=== PATIENT | female | born 1960 | race Caucasian/White ===

== ENCOUNTER 2016-07-13 20:03 | Emergency (ER) | payer OTHER ==
[~2016-07-13 20:03] MED LIST: ASPIR 8181 MG PO; METOPROLOL TAR100 MG PO; SPIRONOLACTONE25 MG PO
[2016-07-13 20:08] VITALS: BP 145/87
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
== END 2016-07-13 20:50 ==
LOC: ERH 20:03
DX: S09.90XA Unspecified injury of head, initial encounter (principal); Y04.8XXA Assault by other bodily force, initial encounter

== ENCOUNTER 2016-12-18 23:32 | Emergency (ER) | payer OTHER ==
[~2016-12-18] VITALS: Ht 152.4 cm; Wt 68.0 kg
--- NOTE | 2016-12-19 00:11 | ED UPPER/LOWER EXTREMITY COMPL ---
History of Present Illness General Chief Complaint: Lower Extremity Injury Stated Complaint: "PER PT LIFTING PT HURT RT LEG" Source: patient Exam Limitations: no limitations Vital Signs & Intake/Output Vital Signs & Intake/Output Vital Signs Date Time Temp Pulse Resp B/P B/P Pulse O2 O2 Flow FiO2 Mean Ox Delivery Rate 12/19 0204 98.5 95 17 134/70 98 Room Air 12/18 2351 98.5 96 16 140/72 98 Room Air ED Intake and Output 12/19 0000 12/18 1200 Intake Total Output Total Balance Patient 150 lb Weight Allergies Coded Allergies: NO KNOWN ALLERGIES (07/13/16) Reconcile Medications Aspirin (Ecotrin) 81 MG ECT 1 TAB PO DAILY HEART HEALTH (Reported) Ibuprofen 600 MG TABLET 1 TAB PO TID PRN pain with food Metoprolol Tartrate 100 MG TAB 0.5 TAB PO DAILY BP (Reported) Spironolactone 25 MG TAB 1 TAB PO DAILY BP (Reported) Triage Note: 56YO FEMALE TO TRIAGE W/CO R KNEE AND ANKLE PAIN SP 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 Triage Nurses Notes Reviewed? yes Onset: Abrupt Duration: hour(s): Timing: single episode today Severity: mild Pain/Injury Location: Right: Knee, Ankle. Method of Injury: twisted knee and ankle while assisting patient Modifying Factors: Improves With: rest. Worsens With: movement. Associated Symptoms: swelling HPI: 56-year-old woman in prior good health presents after an accident. She states that she was assisting a patient to the commode. The patient began to fall. She supportive the patient but in doing so twisted her right ankle and right knee. He notes pain and swelling and difficulty walking. She did not directly banged her ankle or knee. She just notes continued pain for the past hour or so. She is otherwise well, has no deformity, and has no other injuries. Past History Travel History Traveled to [place] past 21 day No Medical History Any Pertinent Medical History? 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 No Sexual History Past Sexual History Unobtainable at this time Review of Systems Review of Systems Constitutional: Reports: no symptoms. EENTM: Reports: no symptoms. Respiratory: Reports: no symptoms. Cardiovascular: Reports: no symptoms. Gastrointestinal/Abdominal: Reports: no symptoms. Genitourinary: Reports: no symptoms. Musculoskeletal: Reports: no symptoms. Skin: Reports: no symptoms. Neurological/Psychological: Reports: no symptoms. Hematologic/Endocrine: Reports: no symptoms. Immunological: Reports: no symptoms. All Other Systems: Reviewed and Negative Physical Exam Physical Exam General Appearance: well developed/nourished, mild distress Head: atraumatic Eyes: Bilateral: normal appearance. Ears, Nose, Throat: normal pharynx, normal ENT inspection, hearing grossly normal Neck: normal inspection, supple Cardiovascular/Respiratory: regular rate/rhythm Gastrointestinal: hernia, guarding Back: normal inspection Shoulder Left: normal range of motion, normal inspection Shoulder Right: normal range of motion, normal inspection Knee Right: diffuse tenderness in the proximal tibia. Minimal effusion. Range of motion is normal. No focal bony tenderness. No sign of infection. Foot Right: mild swelling on the right lateral malleolus. Range of motion is normal. There is no deformity. Light touch and deep tendon reflexes are symmetric and intact. Skin: intact, normal color, warm/dry Lymphatic: no anterior cervical manjeet Progress Differential Diagnosis: contusion, fracture, sprain Plan of Care: Orders Procedure Date/time Status XRY-KNEE, RIGHT 12/19 2355 Active XRY-TWO VIEW RIGHT ANKLE 12/19 2355 Active Diagnostic Imaging: Viewed by Me: Radiology Read. Discussed w/RAD: Radiology Read. Radiology Impression: right knee... no fx. , right ankle... no fx. Comments: PATIENT: MARY VALDEZ PRESENT AGE: 56 PATIENT ACCOUNT NO: [id number] : 60 LOCATION: [facility] ORDERING PHYSICIAN: MIRIAM GUZMAN MD SERVICE DATE: 12/18/16 EXAM TYPE: RAD - XRY-TWO VIEW RIGHT ANKLE EXAMINATION: XR ANKLE, RIGHT CLINICAL INFORMATION: Pain, rule out fracture COMPARISON: 08/01/2013 TECHNIQUE: 2 views of the right ankle. FINDINGS: Screws are seen traversing the talocalcaneal articulation. Articular alignment is anatomic. No acute fracture is seen. Mild soft tissue swelling is noted about the ankle. No significant effusion. IMPRESSION: No acute findings identified. DICTATED BY: PRATIK OATES MD DATE/TIME DICTATED:12/19/16125 DIRECTOR OF CARDIOLOGY SERVICE LINE:DILLON DATE/TIME TRANSCRIBED:12/19/16125 CONFIDENTIAL, DO NOT COPY WITHOUT APPROPRIATE AUTHORIZATION. <Electronically signed in Other Vendor System> SIGNED BY: PRATIK OATES MD 12/19/16131 PATIENT: MARY VALDEZ PRESENT AGE: 56 PATIENT ACCOUNT NO: [id number] : 60 LOCATION: [facility] ORDERING PHYSICIAN: MIRIAM GUZMAN MD SERVICE DATE: 12/18/16 EXAM TYPE: RAD - XRY-KNEE, RIGHT EXAMINATION: XR KNEE, RIGHT CLINICAL INFORMATION: Pain COMPARISON: None TECHNIQUE: Three views of the right knee. FINDINGS: Alignment across the knee is anatomic. Joint spaces appear relatively well preserved. No acute fracture is seen. There is minimal osteophyte formation along the medial tibial plateau. Mild spurring is noted along the superior patella at the insertion of the quadriceps tendon. A trace effusion is suspected. IMPRESSION: No acute fracture. Trace effusion. DICTATED BY: PRATIK OATES MD DATE/TIME DICTATED:12/19/16130 DIRECTOR OF CARDIOLOGY SERVICE LINE:DILLON DATE/TIME TRANSCRIBED:12/19/16130 CONFIDENTIAL, DO NOT COPY WITHOUT APPROPRIATE AUTHORIZATION. <Electronically signed in Other Vendor System> SIGNED BY: PRATIK OATES MD 12/19/16135 Departure Departure Disposition: HOME OR SELF CARE Condition: Stable Clinical Impression Primary Impression: Contusion of right knee Secondary Impressions: Right ankle sprain, Right knee sprain Referrals: BONILLA MICHEL,MERARI Bragg (PCP/Family) Departure Forms: Customer Survey [employer] Employee Acc General Discharge Information Prescriptions: Current Visit Scripts Ibuprofen 1 TAB PO TID PRN pain #30 TAB with food Comments Wilian bandage applied to right knee and ankle. Patient will follow-up with occupational medicine on Wednesday.
--- NOTE | 2016-12-19 01:32 | RADIOLOGY REPORT ---
EXAMINATION: XR ANKLE, RIGHT CLINICAL INFORMATION: Pain, rule out fracture COMPARISON: 08/01/2013 TECHNIQUE: 2 views of the right ankle. FINDINGS: Screws are seen traversing the talocalcaneal articulation. Articular alignment is anatomic. No acute fracture is seen. Mild soft tissue swelling is noted about the ankle. No significant effusion. IMPRESSION: No acute findings identified.
--- NOTE | 2016-12-19 01:36 | RADIOLOGY REPORT ---
EXAMINATION: XR KNEE, RIGHT CLINICAL INFORMATION: Pain COMPARISON: None TECHNIQUE: Three views of the right knee. FINDINGS: Alignment across the knee is anatomic. Joint spaces appear relatively well preserved. No acute fracture is seen. There is minimal osteophyte formation along the medial tibial plateau. Mild spurring is noted along the superior patella at the insertion of the quadriceps tendon. A trace effusion is suspected. IMPRESSION: No acute fracture. Trace effusion.
[2016-12-19] MEDS ORDERED: IBUPROFEN600 M1 PO (01:52)
[2016-12-19 02:04] VITALS: BP 134/70
== END 2016-12-19 02:04 ==
LOC: ERH 23:32
DX: S83.91XA Sprain of unspecified site of right knee, initial encounter (principal); S80.01XA Contusion of right knee, initial encounter; X50.9XXA Other and unspecified overexertion or strenuous movements or postures, initial encounter; Y93.F2 Activity, caregiving, lifting; Y92.9 Unspecified place or not applicable
CPT/HCPCS: 73560-RT; 73600-RT

== ENCOUNTER 2017-08-14 20:08 | Emergency (ER) | payer OTHER ==
[~2017-08-14 20:08] MED LIST changes: +IBUPROFEN600 M1 PO
[2017-08-14 20:32] LABS: ABSOLUTE BASOPHIL COUNT 0.1 /CUMM (0.0-0.2); ABSOLUTE EOSINOPHIL COUNT 0.1 /CUMM (0.0-0.7); ABSOLUTE GRANULOCYTE CT 4.3 /CUMM (1.4-6.5); ABSOLUTE LYMPH COUNT 2.9 /CUMM (1.2-3.4); ABSOLUTE MONOCYTE COUNT 0.6 /CUMM (0.10-0.60); EOSINOPHIL % 1.7 % (0-5); GRANULOCYTE % 54.1 % (42.2-75.2); HEMATOCRIT 41.2 % (37-47); MEAN CORPUSCULAR HGB 27.5 PG (27.0-31.0); MEAN CORPUSCULAR HGB CONC 32.5 G/DL (33.0-37.0); MEAN CORPUSCULAR VOLUME 84.6 FL (81.0-99.0); PLATELET COUNT 392 /CUMM (130-400); RBC DISTRIBUTION WIDTH 14.1 % (11.5-14.5); RED BLOOD CELL CT 4.88 /CUMM (4.20-5.40)
--- NOTE | 2017-08-14 20:37 | ED CARDIAC/CP/PALPITATIONS ---
History of Present Illness General Chief Complaint: Chest Pain Stated Complaint: "IM HAVING CHEST PAIN" Source: patient, old records Exam Limitations: no limitations Vital Signs & Intake/Output Vital Signs & Intake/Output Vital Signs Date Time Temp Pulse Resp B/P B/P Pulse O2 O2 Flow FiO2 Mean Ox Delivery Rate 08/14 2211 Room Air 08/14 2207 98.3 80 20 144/72 97 Room Air 08/14 2021 96.7 97 20 150/90 97 Room Air ED Intake and Output 08/15 0000 08/14 1200 Intake Total 0 Output Total Balance 0 Intake, Oral 0 Patient 68.039 kg Weight Allergies Coded Allergies: NO KNOWN ALLERGIES (07/13/16) Reconcile Medications Aspirin (Ecotrin) 81 MG ECT 1 TAB PO DAILY HEART HEALTH (Reported) Ibuprofen 600 MG TABLET 1 TAB PO TID PRN pain with food Metoprolol Tartrate 100 MG TAB 0.5 TAB PO DAILY BP (Reported) Spironolactone 25 MG TAB 1 TAB PO DAILY BP (Reported) Triage Note: PER PT PAIN TO CLAVICLE DOWN AFTER CHANGING A PT MANY TIMES AT WORK NO SOB NO DIAPHORESIS NO NAUSEA BETTER WITH REST PAIN 01/11 STARTED AT 1830 Triage Nurses Notes Reviewed? yes HPI: 57F PMH HTN, breast cancer s/p radiation, presenting with acute onset of right sided chest pain. Pain is chest wall, tender to touch, became worse when moving a patient, non-exertional, not associated with dyspnea, palpitations, or lightheadedness. No personal or family cardiac history, non-smoker. Past History Travel History Traveled to [place] past 21 day No Medical History Any Pertinent Medical History? 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 No Review of Systems Review of Systems Constitutional: Reports: no symptoms. EENTM: Reports: no symptoms. Respiratory: Reports: no symptoms. Cardiovascular: Reports: no symptoms. GI: Reports: no symptoms. Genitourinary: Reports: no symptoms. Musculoskeletal: Reports: no symptoms. Skin: Reports: no symptoms. Neurological/Psychological: Reports: no symptoms. Hematologic/Endocrine: Reports: no symptoms. Immunologic/Allergic: Reports: no symptoms. All Other Systems: Reviewed and Negative Physical Exam Physical Exam General Appearance: well developed/nourished, no apparent distress Head: atraumatic, normal appearance Eyes: Bilateral: normal appearance. Ears, Nose, Throat: normal pharynx, normal ENT inspection Neck: normal inspection, supple, full range of motion Respiratory: normal breath sounds, chest non-tender, no respiratory distress Cardiovascular: regular rate/rhythm Gastrointestinal: soft, non-tender Back: normal inspection, normal range of motion Extremities: normal inspection, normal range of motion Neurologic/Psych: awake, alert, oriented x 3, normal mood/affect Skin: intact, normal color, warm/dry Core Measures ACS in differential dx? Yes No ASA d/t Medication Refused CVA/TIA Diagnosis No Sepsis Present: No Sepsis Focused Exam Completed? No Progress Differential Diagnosis: AMI, aortic dissection, atrial fibrillation, cholecystitis, CHF/pulm edema, costochondritis, hyperkalemia, hypovolemia, hyperthyroid, hyperventilation, intracranial hemorrhage, musculoskeletal pain, myocarditis, pancreatitis, pericarditis, pneumonia, pneumothorax, PSVT, pulmonary embolism, PUD/GERD, PVCs/PACs, respiratory failure, rib fracture, sepsis, unstable angina, V-fib/V-Tach, WPW syndrome Plan of Care: Orders Procedure Date/time Status TROPONIN LEVEL 08/14 2019 Complete COMPREHENSIVE METABOLIC PANEL 08/14 2019 Complete CBC WITHOUT DIFFERENTIAL 08/14 2019 Complete EKG 08/14 2011 Active Laboratory Tests 08/14/172025: Anion Gap 13, Estimated GFR > 60, BUN/Creatinine Ratio 16.3, Glucose 119 H, Calcium 9.7, Total Bilirubin 0.3, AST 18, ALT 26, Alkaline Phosphatase 86, Troponin I < 0.01, Total Protein 8.0, Albumin 4.4, Globulin 3.6, Albumin/ Globulin Ratio 1.2 08/14/172019: CBC w Diff NO MAN DIFF REQ, RBC 4.88, MCV 84.6, MCH 27.5, MCHC 32.5 L, RDW 14.1 , MPV 7.0 L, Gran % 54.1, Lymphocytes % 35.9, Monocytes % 7.3, Eosinophils % 1.7, Basophils % 1.0, Absolute Granulocytes 4.3, Absolute Lymphocytes 2.9, Absolute Monocytes 0.6, Absolute Eosinophils 0.1, Absolute Basophils 0.1 Initial ED EKG: normal sinus rhythm, no ST T wave changes Repeat EKG: unchanged Departure Departure Disposition: HOME OR SELF CARE Condition: Stable Clinical Impression Primary Impression: Chest wall pain Referrals: Audrey MICHEL,Damien Bragg (PCP/Family) Additional Instructions: Follow up with your primary care physician, use ice and heat alternating for pain along with Ibuprofen. Return to emergency room if you experience worsening or new symptoms. Departure Forms: Customer Survey General Discharge Information Critical Care Note Critical Care Note Critical Care Time: non-applicable
--- NOTE | 2017-08-14 21:19 | RADIOLOGY REPORT ---
EXAMINATION: XR CHEST CLINICAL INFORMATION: Shoulder strain. Pain in the clavicle and chest. COMPARISON: Chest radiograph 06/03/2017. TECHNIQUE: 2 views of the chest were obtained. FINDINGS: The lungs are clear. No pleural effusion. Cardiomediastinal silhouette and pulmonary vasculature are within normal limits. Surgical clips are noted in the right axilla, unchanged. Osseous structures are intact and unremarkable. IMPRESSION: 1. No acute cardiopulmonary disease. 2. No acute osseous abnormality.
[2017-08-14 22:08] VITALS: BP 144/72
== END 2017-08-14 22:48 ==
LOC: ERH 20:08
PROVIDERS: Emergency Medicine
DX: R07.89 Other chest pain (principal)
CPT/HCPCS: 71046; 93005; 93010